=== PATIENT | male | born 1955 | race Caucasian/White ===

== ENCOUNTER 2021-05-24 14:50 | Emergency (ER) | payer OTHER, SELFPAY ==
[2021-05-24] VITALS (7 sets, daily range): BP systolic 112–171; BP diastolic 69–111; PULSE 74–93; RESP 14–22; TEMP 36.5; O2SAT 96–99; BMI 26.4
[2021-05-24 15:52] LABS: Basophils % 0.2 %; Eosinophils # 0.1 10^3/uL (0.0-0.8); Eosinophils % 1.1 %; Hematocrit 43.4 % (42.0-52.0); Hemoglobin 14.4 g/dL (11.7-16.6); Lymphocytes # 1.7 10^3/uL (0.8-4.8); Lymphocytes % 14.2 %; Mean Corpuscular HGB Conc 33.2 g/dL (30.0-36.0); Mean Corpuscular Hemoglobin 31.1 pg (28.0-34.0); Mean Corpuscular Volume 93.7 fl (80-94); Mean Platelet Volume 11.1 fL (7.4-10.4); Monocytes # 0.5 10^3/uL (0.2-0.9); Monocytes % 4.4 %; Neutrophils # 9.59 10^3/uL (1.8-7.7); Neutrophils % 79.4 %; Nucleated Red Blood Cells % 0 %; Platelet Count 368 10^3/cmm (130-400); Red Blood Count 4.63 10^6/uL (4.1-5.3); Red Cell Distribution Width 12.3 % (12.1-15.1); White Blood Count 12.1 10^3/uL (4.0-10.0)
--- NOTE | 2021-05-24 15:59 | W.ED.ABDPA2 ---
HPI - Abdominal Pain General: Chief Complaint: Abdominal Pain Stated Complaint: STATES PANCREATITIS :SEEN HERE 2 WKS AGO FOR SAME Time Seen by Provider: 05/24/21 15:59 History of Present Illness: HPI narrative: Mr. Nguyen is a 65-year-old gentleman with significant past medical history of ulcerative colitis status post ostomy and history of pancreatitis who presents to the emergency department due to abdominal pain. Symptom onset was earlier this morning and acute. It woke him up from sleep. Since that time he has had severe intensity sharp abdominal pain in the epigastric region which radiates to the back. He has associated nausea, vomiting which is nonbloody. He has had decreased ostomy output but reports that this is because he has nothing in the stomach. Symptoms are worse with movement and palpation but do not go with rest. He has had 2 similar episodes in the past and was told that he has pancreatitis initially secondary to alcohol use though he denies alcohol use currently. No other specific changes in health, exacerbating, or relieving factors identified. Review of Systems General: Reports: 10 or more systems reviewed and unremarkable except in HPI and below PFSH ED PFSH: Medical History Anxiety Autoimmune disease Bipolar 1 disorder Crohn's disease Depression Hearing loss Idiopathic peripheral autonomic neuropathy PTSD (post-traumatic stress disorder) Ulcerative colitis Surgical History Ileostomy status Family History Denies family history of Anesthesia complication Bleeding disorder Social History Smoking and tobacco status: never smoked Second hand smoke exposure: No Alcohol intake: never Adopted: No Caregiver/support person: Yes Lives independently: Yes Household members: significant other Housing: House Highest education level completed: High School Graduate service: Yes status: Retired Current occupational exposures/hazards: No Pets and animals: No History of recent travel: No Sexually active: Yes Current gender identity: Male Karol/[employer]ist: [employer] Special karol needs: No Agree to transfusion: No Financial difficulty paying for basics: Decline to Answer Physical Exam Narrative: EXAM NARRATIVE: GENERAL/CONSTITUTIONAL - well-appearing. Distress due to pain Eyes - PERRL, no conjunctival injection ENMT - Atraumatic external nose and ears. Moist mucous membranes NECK - supple. trachea midline CARDIOVASCULAR - regular rate and rhythm. Peripheral pulses 2+ and equal RESPIRATORY -clear to auscultation bilaterally. No retractions or accessory muscle use. ABDOMEN/GI -mild tenderness in the epigastric region. Nondistended. No tenderness to percussion or evidence of peritonitis MSK - Extremities without obvious deformity or tenderness to palpation SKIN - Warm, Dry NEURO - alert and appropriately oriented. Moves all extremities equally. PSYCH - Appropriate mood and affect Course ED course: - Patient was seen and evaluated by me at bedside - Patient placed on cardiac monitors, IV access obtained - Initial evaluation notable for discomfort due to pain -Symptom treatment ordered - Labs notable for as noted, lipase. - Imaging notable for no obvious cause of patient's symptoms - Upon serial reexamination after treatment the patient was improved after multiple rounds of treatment - Based on patient history, evaluation, labs, and imaging as interpreted the most likely cause of the patient's condition is abdominal pain. Patient does not technically meet testing criteria for pancreatitis however he believes strongly that is what is causing his pain - tolerated PO intake - The results of ED evaluation were discussed with the patient including prescriptions and/or symptomatic cares (if applicable) including appropriate and responsible use, followup plan, and return precautions. The patient verbalized understanding and felt safe for discharge. - Patient discharged in satisfactory condition. Vital Signs: Vital signs: Vital Signs Temperature 97.7 F 05/24/21 15:03 Pulse Rate 88 05/24/21 21:20 Respiratory Rate 18 05/24/21 21:20 Blood Pressure 140/99 05/24/21 21:20 Pulse Oximetry 96 05/24/21 21:20 MDM - Abdominal Pain Medical Records: Attestation: I reviewed the patient's medical records. Lab Data: Attestation: I reviewed the patient's lab results. Labs: Lab Results 05/24/21 05/24/21 05/24/21 15:30 15:30 15:30 WBC 12.1 10^3/uL H 10 ^3/uL (4.0-10.0) RBC 4.63 10^6/uL 10^6 /uL (4.1-5.3) Hgb 14.4 g/dL g/dL (11.7-16.6) Hct 43.4 % % (42.0-52.0) MCV 93.7 fl fl (80-94) MCH 31.1 pg pg (28.0-34.0) MCHC 33.2 g/dL g/dL (30.0-36.0) RDW 12.3 % % (12.1-15.1) Plt Count 368 10^3/cmm 10^3 /cmm (130-400) MPV 11.1 fL H fL (7.4-10.4) Neut % (Auto) 79.4 % % Lymph % (Auto) 14.2 % % [place] % (Auto) 4.4 % % Eos % (Auto) 1.1 % % Baso % (Auto) 0.2 % % Neut # (Auto) 9.59 10^3/uL H 10 ^3/uL (1.8-7.7) Lymph # (Auto) 1.7 10^3/uL 10^3/ uL (0.8-4.8) [place] # (Auto) 0.5 10^3/uL 10^3/ uL (0.2-0.9) Eos # (Auto) 0.1 10^3/uL 10^3/ uL (0.0-0.8) Baso # (Auto) 0.0 10^3/uL 10^3/ uL (0.0-0.1) Nucleated RBC % (a uto) 0 % % Nucleated RBCs # 0.0 /100WBC /100W BC Sodium 137 mmol/L mmol/L (136-145) Potassium 3.9 mmol/L mmol/L (3.5-5.1) Chloride 101 mmol/L mmol/L (98-107) Carbon Dioxide 24 mmol/L mmol/L (22-29) Anion Gap 15.9 (5-19) BUN 17 mg/dL mg/dL (8-23) Creatinine 1.0 mg/dL mg/dL (0.7-1.2) GFR Calculation 75.5 mL/min L mL/ min (90-130) Glucose 122 mg/dL H mg/dL (65-115) Calculated Osmolal ity 287 mOsm/kg mOsm/ kg (285-295) Calcium 10.1 mg/dL mg/dL (8.5-10.5) Total Bilirubin 0.4 mg/dL mg/dL (0.15-1.2) AST 20 U/L U/L (0-40) ALT 39 U/L U/L (0-41) Alkaline Phosphata se 43 IU/L IU/L (40-130) Troponin T Baselin e 6 ng/L ng/L (0-15) Troponin T 120 Min [place] Troponin T Total Protein 8.1 g/dL g/dL (6.6-8.7) Albumin 4.2 g/dL g/dL (3.5-5.2) Globulin 3.9 g/dL g/dL (1.3-4.6) Amylase 92 U/L U/L (28-100) Lipase 33 U/L U/L (13-60) Urine Color Urine Appearance Urine pH Ur Specific Gravit y Urine Protein Urine Glucose (UA) Urine Ketones Urine Blood Urine Nitrate Urine Bilirubin Urine Urobilinogen Ur Leukocyte Julia ase 05/24/21 05/24/21 17:28 17:50 WBC RBC Hgb Hct MCV MCH MCHC RDW Plt Count MPV Neut % (Auto) Lymph % (Auto) [place] % (Auto) Eos % (Auto) Baso % (Auto) Neut # (Auto) Lymph # (Auto) [place] # (Auto) Eos # (Auto) Baso # (Auto) Nucleated RBC % (a uto) Nucleated RBCs # Sodium Potassium Chloride Carbon Dioxide Anion Gap BUN Creatinine GFR Calculation Glucose Calculated Osmolal ity Calcium Total Bilirubin AST ALT Alkaline Phosphata se Troponin T Baselin e Troponin T 120 Min [place] 6.93 ng/L ng/L (0-15) Delta Troponin T 0.93 ABS# ABS# (0-10) Total Protein Albumin Globulin Amylase Lipase Urine Color Straw (Yellow) Urine Appearance Clear (CLEAR) Urine pH 5 (5-7) Ur Specific Gravit y 1.010 (1.005-1.030) Urine Protein Neg (Negative) Urine Glucose (UA) Norm (Normal) Urine Ketones Negative (Negative) Urine Blood Neg (Negative) Urine Nitrate Negative (Negative) Urine Bilirubin Neg (Negative) Urine Urobilinogen Norm mg/dL mg/dL (Negative) Ur Leukocyte Julia ase Negative (Negative) EKG Data ^: EKG 1: Attestation: I personally reviewed and interpreted this EKG as follows: EKG interpretation date: 05/24/21 EKG interpretation time: 20:20 Interpretation: regular rhythm at rate of 83 IA 185 normal axis Sinus rhythm EKG 2: Attestation: I personally reviewed and interpreted this EKG as follows: EKG interpretation date: 05/24/21 EKG interpretation time: 18:23 Interpretation: regular rhythm rate 83 IA 145 normal axis interp: sinus rhythm. similar to prior Discharge Plan Discharge Patient Disposition: Home Clinical Impression: Abdominal pain, Nausea & vomiting Condition: Stable Prescriptions: New oxycodone 5 mg tablet 5 mg PO Q4H PRN (Reason: pain) Qty: 6 RF: 0 promethazine 25 mg tablet 25 mg PO TID PRN (Reason: nausea and vomiting) Qty: 6 RF: 0 doxycycline hyclate 100 mg tablet 100 mg PO BID 7 Days Qty: 14 RF: 0 No Action atenolol 100 mg tablet 50 mg PO BID RF: 0 sulfamethoxazole-trimethoprim [Bactrim DS] 800-160 mg tablet 1 tab PO BID 10 Days Qty: 20 RF: 0 venlafaxine [Effexor XR] 75 mg capsule,extended release 24hr 225 mg PO QAM RF: 0 buspirone 10 mg tablet 10 mg PO BID PRN (Reason: Anxiety) RF: 0 quetiapine [Seroquel] 25 mg tablet 75 mg PO QDAY RF: 0 cephalexin [Keflex] 750 mg capsule 750 mg PO BID 10 Days Qty: 20 RF: 0 Discharge Orders: Discharge ED (Routine); Ordered 05/24/21 Ordered By: Corky Daily Referrals: Marvin Singh, DO [Primary Care Provider] - Discharge Diet: Advance as tolerated and Clear Liquid Discharge Activity: Increase activity as tolerated Patient Instructions: Abdominal Pain (ED), Opioid Safety Activity Restrictions/Additional Instructions: Followup with PCP, return as needed. Coding Level of Care Code ED Pay Clerk for Tj Arevalo
--- NOTE | 2021-05-24 16:13 | ECG_ITS ---
Test Date: 2021-05-24 Pat Name: Samuel Nguyen Department: Room: Gender: Male Ux Interaction Designer: : 1955 Requested By: Corky Daily Order Number: [id number] Artem MD: Citlali Peña M.D. Measurements Intervals [place] Rate: 83 P: -79 MD: 145 QRS: 32 QRSD: 102 T: 64 QT: 343 QTc: 404 Interpretive Statements ECTOPIC ATRIAL RHYTHM ABNORMAL RHYTHM ECG No previous ECG available for comparison Electronically Signed On 05-24-2021 23:34:16 CDT by Citlali Peña M.D. [id number]
[2021-05-24 16:14] LABS: Alanine Aminotransferase 39 U/L (0-41); Albumin Level 4.2 g/dL (3.5-5.2); Alkaline Phosphatase 43 IU/L (40-130); Amylase 92 U/L (28-100); Anion Gap 15.9 (5-19); Aspartate Amino Transferase 20 U/L (0-40); Blood Urea Nitrogen 17 mg/dL (8-23); Calcium 10.1 mg/dL (8.5-10.5); Carbon Dioxide 24 mmol/L (22-29); Chloride 101 mmol/L (98-107); Creatinine Clr Calc Pharmacy 87.6307; Globulin 3.9 g/dL (1.3-4.6); Glomerular Filtration Rate 75.5 mL/min (90-130); Glucose 122 mg/dL (65-115); Lipase 33 U/L (13-60); Osmolality Calculated 287 mOsm/kg (285-295); Potassium 3.9 mmol/L (3.5-5.1); Sodium 137 mmol/L (136-145); Total Bilirubin 0.4 mg/dL (0.15-1.2); Total Protein 8.1 g/dL (6.6-8.7)
--- NOTE | 2021-05-24 16:31 | CTR_ITS ---
PROCEDURE INFORMATION: Exam: CT Abdomen And Pelvis With Contrast Exam date and time: 05/24/2021 4:31 PM Age: 65 years old Clinical indication: Nausea and vomiting; Abdominal pain; Localized; Upper; Prior surgery; Surgery type: Ileostomy; Patient HX: HX of pancreatitis TECHNIQUE: Imaging protocol: Computed tomography of the abdomen and pelvis with contrast. Radiation optimization: All CT scans at this facility use at least one of these dose optimization techniques: automated exposure control; mA and/or kV adjustment per patient size (includes targeted exams where dose is matched to clinical indication); or iterative reconstruction. Contrast material: OMNI 300; Contrast volume: 95 ml; Contrast route: INTRAVENOUS (IV); COMPARISON: CT abdomen pelvis w con* [id number] 03/01/2016 12:44 PM RADIATION DOSE METRICS: Total DLP (mGy-cm): 1579.26 FINDINGS: Lungs: Small centrilobular opacities in both lower lobes, left greater than right. Mediastinal space: Small hiatal hernia. Liver: Fluid density cyst in the left liver lobe, Hounsfield units less than 20. Additional hypodense lesions in the liver are too small to characterize but are also likely cysts. No follow-up imaging is recommended. Gallbladder and bile ducts: Normal. No calcified stones. No ductal dilation. Pancreas: Normal. No ductal dilation. Spleen: Normal. No splenomegaly. Adrenal glands: Normal. No mass. Kidneys and ureters: 1 mm nonobstructing right renal calculus. The left kidney is normal. No hydronephrosis. Stomach and bowel: Right lower quadrant terminal ileostomy. Mild fecalization of the distal small bowel. No obstruction. The stomach is unremarkable. Appendix: No evidence of appendicitis. Intraperitoneal space: Abdominal peroneal resection. Resection of the colon. Vasculature: Arterial calcifications. No aneurysm. Retroaortic left renal vein. Lymph nodes: Unremarkable. No enlarged lymph nodes. Urinary bladder: Unremarkable as visualized. Reproductive: Unremarkable as visualized. Bones/joints: Mild degenerative changes and curvature of the lumbar spine. No fracture. Soft tissues: Unremarkable. CT/CT abdomen pelvis w con* [id number] IMPRESSION: 1. No acute abnormality identified in the abdomen or pelvis. 2. Colectomy with left lower quadrant ileostomy. 3. Mild fecalization in the distal small bowel is consistent with delayed transit time. No evidence for obstruction. 4. Mild centrilobular opacities in the lower lobes could represent endobronchial infection or aspiration pneumonitis. Radiation Dose CTDIVOL = (mGy): DLP = 1579.26 (mGy-cm)
--- NOTE | 2021-05-24 16:31 | XRR_ITS ---
PROCEDURE INFORMATION: Exam: XR Chest Exam date and time: 05/24/2021 4:31 PM Age: 65 years old Clinical indication: Other: Epigastric pain, radiation to chest TECHNIQUE: Imaging protocol: XR of the chest. Views: 1 view. COMPARISON: CT abdomen pelvis w con* [id number] 05/24/2021 4:40 PM FINDINGS: Lungs: Unremarkable. No consolidation. Pleural spaces: Unremarkable. No pleural effusion. No pneumothorax. Heart/Mediastinum: Unremarkable. No cardiomegaly. Bones/joints: Unremarkable. XR/XR chest 1V portable [id number] IMPRESSION: No acute findings.
[2021-05-24] MEDS: lactated ringers 1,000 ML 999 ML IV (16:36)
[2021-05-24] MEDS: morphine 4 mg/mL SDV 1 mL IVP (16:38)
[2021-05-24] MEDS: promethazine 25 mg/mL SDV 1 mL IM ×2 (16:38→20:27)
[2021-05-24] MEDS: iohexol 300 mg/mL 100 mL Btl IV (16:44)
[2021-05-24 17:31] LABS: Troponin(5th) Baseline 6 ng/L (0-15)
[2021-05-24] MEDS: lidocaine 2% viscous 15 ML, aluminum-mag hydrox-simethicon 30 ML, sucralfate oral liq 1 GM PO (17:44)
[2021-05-24] MEDS: fentaNYL 50 mcg/mL INJ 2mL IVP (17:44)
[2021-05-24 18:07] LABS: Add Urine Microscopic? NO; Charge for UA Resulting for Rev
--- NOTE | 2021-05-24 18:13 | ECG_ITS ---
[facility] Test Date: 2021-05-24 Pat Name: Samuel Nguyen Department: Room: Gender: Male Software Database Architect: : 1955 Requested By: Corky Daily Order Number: [id number] Artem MD: Citlali Peña M.D. Measurements Intervals [place] Rate: 83 P: 62 AR: 185 QRS: 37 QRSD: 103 T: 66 QT: 347 QTc: 408 Interpretive Statements SINUS RHYTHM Compared to ECG 05/24/2021 18:16:00 Ectopic atrial rhythm no longer present Electronically Signed On 05-25-2021 0:00:50 CDT by Citlali Peña M.D. [id number]
[2021-05-24 18:17] LABS: Troponin 5 2HR 6.93 ng/L (0-15); Troponin 5 2HR Delta 0.93 ABS# (0-10)
[2021-05-24 18:18] LABS: Bilirubin Urine Neg (Negative); Blood Urine Neg (Negative); Glucose Urine UA Norm (Normal); Ketones Urine Negative (Negative); Leukocyte Esterase Urine Negative (Negative); Nitrate Urine Negative (Negative); Protein Urine Neg (Negative); Urine Appearance Clear (CLEAR); Urine Color Straw (Yellow); Urobilinogen Urine Norm (Negative); pH Urine 5 (5-7)
[2021-05-24] MEDS: atenolol 50 mg Tablet PO (18:48)
[2021-05-24] MEDS: HYDROmorphone 1 mg/mL INJ 1 mL 0.5 MG IVP ×2 (18:48→20:27)
== END 2021-05-24 21:22 | disposition home or self-care (01) ==
PROVIDERS: Emergency Medicine; Emergency Provider Emergency Medicine; PCP Emergency Medicine Emergency Medical Services
DX: R10.9 Unspecified abdominal pain (principal); R11.2 Nausea with vomiting, unspecified
CPT/HCPCS: 71045; 74177; 80053; 81003; 82150; 83690; 84484; 85025; 93005; 96361; 96372; 96374; 96375; 96376; 99284; J1170; J2270; J2550; J3010; Q9967